=== PATIENT | female | born 1945 | race Caucasian/White ===

== ENCOUNTER → 2019-08-25 | Outpatient (CLI) | payer MEDICARE, OTHER ==
--- NOTE | 2019-08-26 14:41 | RADIOLOGY REPORT (SQ) ---
EXAM DESCRIPTION: PET CT SKULL/THIGH COMPLETED DATE/TIME: 08/25/2019 8:07 pm REASON FOR STUDY: PULMONARY NODULE (R91.1) R91.1 SOLITARY PULMONARY NODULE COMPARISON: 08/04/2019 report. RADIONUCLIDE AND DOSE: 10.01 mCi F18 FDG The route of agent administration: Intravenous FASTING BLOOD SUGAR: 186 mg/dl CONTRAST TYPE AND DOSE: No CT contrast given. TECHNIQUE: Blood glucose level was verified. Above dose of FDG was injected intravenously. 2-D seg mented attenuation correction images were obtained from the base of the skull to the midthighs. Nonc ontrast CT images were obtained for attenuation correction and fusion with emission images. CT image s were performed without oral or intravenous contrast and are not sensitive for parenchymal lesions. A series of overlapping emission PET images were obtained. Images reviewed and manipulated at [facility] work station by the radiologist. Images stored on PACS. LIMITATIONS: None. FINDINGS: HEAD AND NECK: No areas of abnormal metabolic activity in the soft tissues of the head and neck. CHEST: There are scattered calcified granuloma. Additional noncalcified scattered pulmonary nodules. Large noncalcified right upper lobe nodule measures 6 mm without significant increased uptake (max SUV 0.9). No focal abnormal uptake within the left hemithorax. Calcified mediastinal nodes. Scatte red coronary atherosclerosis. Bibasilar dependent hypoventilatory change. ABDOMEN AND PELVIS: Background hepatic activity max SUV 3.8. No areas of abnormal metabolic activity in the abdomen or pelvis. Expected physiologic activity is present in the genitourinary system and bowel. Nonobstructing left-sided renal stone. Left double-J ureteral stent proximal tip in the lowe r renal pelvis and distal tip within the proximal urinary bladder. PROXIMAL LOWER EXTREMITIES: No areas of abnormal metabolic activity in the soft tissues of the lower extremities. BONES: No abnormal metabolic activity in the visualized skeleton. ADDITIONAL CT FINDINGS: As above. IMPRESSION: Negative PET-CT. No abnormal uptake corresponding to scattered noncalcified subcentimet er pulmonary nodules which favors more benign etiology. Additional scattered calcified nodules and m ediastinal nodes compatible prior granulomatous disease. TECHNICAL DOCUMENTATION: JOB ID: [id number] [employer]- All Rights Reserved Reading location - IP/workstation name: [email or web address]
== END ==
LOC: RAD 08:26
PROVIDERS: ATTEND Family Medicine
DX: R91.1 Solitary pulmonary nodule (principal)
CPT/HCPCS: 78815; A9552